=== PATIENT | male | born 1995 | race African-American/Black ===

== ENCOUNTER 2020-12-29 01:26 | Emergency (ER) | payer OTHER, SELFPAY ==
[2020-12-29 01:27] VITALS: BP 145/76; PULSE 66; RESP 18; TEMP 36.6; O2SAT 100
--- NOTE | 2020-12-29 01:30 | ED.GENADULT ---
HPI - General Adult General Chief complaint: Unspecified Stated complaint: bloody bm yesterday History of Present Illness HPI narrative: 25 yo male w/ h/o schizoaffective disorder presents to the ED for blood in his stool. He says that he noted blood in his stool x1 yesterday. He had a bowel movement today that had little or no blood in it. He says that he has had similar episodes in the past. He does not have a physician. He denies any other symptoms. The primary reason he is here is that it is very cold and he does not have anywhere to go. He is homeless and he was not able to make it to the [place] [facility]. Related Data Home Medications Medication Instructions Recorded Confirmed No Home Medications 12/29/20 12/29/20 Allergies Allergy/AdvReac Type Severity Reaction Status Date / Time No Known Allergies Allergy Verified 12/29/20 01:56 Review of Systems Review of Systems: All systems reviewed & are unremarkable except as noted in HPI and below Constitutional: Constitutional: Denies body ache(s) and Denies fever(s) Eyes: Eyes: Reports no additional eye complaints ENT: Reports system reviewed and no additional complaints, except as documented Cardiovascular: Cardiovascular: Denies chest pain Respiratory: Respiratory: Denies dyspnea Gastrointestinal: Gastrointestinal: Denies abdominal pain, Reports hematochezia, Denies GI cramping, Denies diarrhea, Denies nausea and Denies vomiting Genitourinary: Genitourinary: Denies dysuria Neurologic: Reports system reviewed and no additional complaints, except as documented [facility] Past Medical History Medical History (Updated 12/29/20 @ 05:11 by Jose Alba MD) Schizoaffective disorder Social History Social History (Updated 12/29/20 @ 04:59 by Jose Alba MD) Alcohol use details: occasional Living arrangements: homeless Exam Const: General: healthy appearing, no acute distress and alert Orientation/consciousness: patient oriented x3 HENMT: Head: normal to inspection Neck: Neck: normal visual inspection and no lymphadenopathy Chest: Chest palpation & inspection: no tenderness Resp: Effort & Inspection: normal respiratory effort Auscultation: clear to auscultation bilaterally, no rales, no rhonchi and no wheezes Cardio: Jugular venous distension: no JVD Rate: regular rate Rhythm: regular rhythm Heart sounds: no murmurs GI: Inspection: non-distended GI Palp: Yes Soft to palpation and No Tenderness to palpation present (GI) Skin: General skin exam: normal color Neuro: General: patient oriented x3 and moves all extremities Speech: normal speech Extrem: General: normal to inspection Psych: Appearance: well kempt Affect: Blunted affect present Attitude: cooperative Course Vital Signs Vital signs: Vital Signs Temperature 36.6 C 12/29/20 01:27 Pulse Rate 66 12/29/20 01:27 Respiratory Rate 18 12/29/20 01:27 Blood Pressure 145/76 H 12/29/20 01:27 Pulse Oximetry 100 12/29/20 01:27 Temperature 36.6 C 12/29/20 01:27 Pulse Rate 81 12/29/20 04:02 Respiratory Rate 18 12/29/20 04:02 Blood Pressure 130/81 12/29/20 04:02 Pulse Oximetry 100 12/29/20 04:02 Medical Decision Making MDM Narrative Medical decision making narrative: Labs reassuring. He needs PCP follow-up. Medical Records Medical records reviewed: Yes I reviewed the external patient's medical records. Vital Signs Vital Signs: Vital Signs Temperature 36.6 C 12/29/20 01:27 Pulse Rate 66 12/29/20 01:27 Respiratory Rate 18 12/29/20 01:27 Blood Pressure 145/76 H 12/29/20 01:27 Pulse Oximetry 100 12/29/20 01:27 Temperature 36.6 C 12/29/20 01:27 Pulse Rate 81 12/29/20 04:02 Respiratory Rate 18 12/29/20 04:02 Blood Pressure 130/81 12/29/20 04:02 Pulse Oximetry 100 12/29/20 04:02 Lab Data Result diagrams: 12/29/20 01:50 12/29/20 01:50 Labs: Lab Results 12/29/20
[2020-12-29 01:45] VITALS: BP 146/77; PULSE 55
[2020-12-29 01:46] VITALS: BP 135/81; BP 136/87; PULSE 67; PULSE 69
[2020-12-29 01:59] LABS: Basophils Absolute Auto 0.1 K/mm3 (0.0-0.1); Basophils Percent Auto 0.9 % (0.2-1.2); Eosinophils Absolute Auto 0.1 K/mm3 (0-0.3); Eosinophils Percent Auto 1.7 % (0-4.4); Hematocrit 43.8 % (42.0-52.0); Hemoglobin 14.6 g/dL (14.0-18.0); Immature Granulocyte Absolute 0.01 K/mm3 (0.00-0.031); Immature Granulocyte Percent A 0.1 % (0-0.5); Lymphocytes Absolute Auto 2.56 K/mm3 (0.9-3.2); Lymphocytes Percent Auto 32.8 % (18.3-44.2); Mean Corpuscular HGB Conc 33.3 g/dl (32-36); Mean Corpuscular Hemoglobin 31.5 pg (26-34); Mean Corpuscular Volume 94.6 fl (80-100); Mean Platelet Volume 10.7 fl (7.4-10.4); Monocytes Absolute Auto 0.7 K/mm3 (0.1-0.6); Monocytes Percent Auto 8.5 % (2.6-8.5); Neutrophils Absolute Auto 4.4 K/mm3 (1.3-6.7); Platelet Count Result 169 k/mm3 (150-375); Red Blood Count 4.63 M/mm3 (4.6-6.20); Red Cell Distribution Width 13.4 % (11.5-14.5); White Blood Count 7.8 K/mm3 (4.5-10.0)
[2020-12-29 02:10] LABS: Partial Thromboplastin Time 32.3 SECONDS (22.3-36.8)
[2020-12-29 02:11] LABS: Alanine Aminotransferase 15 U/L (4-50); Albumin Level 4.2 g/dL (3.5-5.1); Alkaline Phosphatase 72 U/L (38-126); Anion Gap 3 mmol/L (8-16); Aspartate Amino Transferase 26 U/L (17-59); Bilirubin,Total 1.2 mg/dL (0.2-1.3); Blood Urea Nitrogen 10 mg/dL (9-20); Carbon Dioxide 30 mmol/L (22-30); Chloride 107 mmol/L (98-107); Estimated CRCL calculation 115 ml/min; Estimated Glomerular Filt Rate > 60; Glucose 82 mg/dL (75-110); Lipase 278 U/L (23-300); Sodium 140 mmol/L (137-145)
[2020-12-29 02:58] VITALS: BP 122/78; PULSE 71; RESP 18; O2SAT 100
[2020-12-29 04:02] VITALS: BP 130/81; PULSE 81; RESP 18; O2SAT 100
--- NOTE | 2020-12-29 05:45 | PC.NURSE ---
Assumed care of pt. at this time. Report from KEVIN Fry
[2020-12-29 06:10] VITALS: BP 121/78; PULSE 76; RESP 20; O2SAT 98
== END 2020-12-29 06:10 | disposition home or self-care (01) ==
PROVIDERS: Emergency Provider Emergency Medicine
DX: K92.1 Melena (principal)
CPT/HCPCS: 36415; 80053; 83690; 85025; 85610; 85730; 99283